=== PATIENT | female | born 1990 | race Caucasian/White ===

== ENCOUNTER 2022-06-25 12:50 | Emergency (ER) | payer OTHER ==
[~2022-06-25] VITALS: Ht 177.8 cm; Wt 105.7 kg
[2022-06-25] MEDS ORDERED: BUPRENORPHIN-N1 EAC1 SL (14:17)
[2022-06-25] MEDS ORDERED: PROM25 PO (14:17)
== END 2022-06-25 14:45 | disposition home or self-care (01) ==
LOC: ER 12:50
DX: F11.23 Opioid dependence with withdrawal (principal); F17.200 Nicotine dependence, unspecified, uncomplicated
CPT/HCPCS: A9270

== ENCOUNTER 2022-07-07 10:45 | Emergency (ER) | payer OTHER ==
[~2022-07-07] VITALS: Ht 177.8 cm; Wt 101.2 kg
[~2022-07-07 10:45] MED LIST: BUPRENORPHIN-N1 EAC1 SL; PROM25 PO
[2022-07-07] MEDS ORDERED: CEPH500 PO (11:13)
== END 2022-07-07 12:32 | disposition home or self-care (01) ==
LOC: ER 10:45
DX: S92.355A Nondisplaced fracture of fifth metatarsal bone, left foot, initial encounter for closed fracture (principal); L02.414 Cutaneous abscess of left upper limb; F17.200 Nicotine dependence, unspecified, uncomplicated; X50.1XXA Overexertion from prolonged static or awkward postures, initial encounter; Z88.0 Allergy status to penicillin
CPT/HCPCS: 73630